=== PATIENT | female | born 1975 | race African-American/Black ===

== ENCOUNTER 2020-06-07 17:06 | Emergency (ER) | payer SELFPAY ==
[2020-06-07 17:14] VITALS: BP 143/86; PULSE 77; RESP 14; TEMP 36.7; O2SAT 97; BMI 25.4
[2020-06-07] MEDS: TET,DIPH,PERTUSS(ACELL),VAC/PF 0.5 ML SYRINGE IM (17:23)
--- NOTE | 2020-06-07 17:33 | PC.NURSE ---
Laceration between ring/pinky finger, gauze and pressure applied.
[2020-06-07] MEDS: ACETAMINOPHEN 325 MG TABLET 975 MG PO (19:03)
--- NOTE | 2020-06-07 19:27 | ED_ITS ---
HPI - Wound/Laceration General Chief Complaint: Wound/Laceration Stated Complaint: laceration right hand from glass Time Seen by Provider: 06/07/20 18:04 Source: patient and family Mode of arrival: Ambulatory Limitations: no limitations History of Present Illness HPI narrative: This is a 45-year-old female who states that she cut her the inside of her pinky finger in the webbing between the thinking and 4th finger about 4:00 p.m. today while washing a glass. She states the glass edge was chipped and she did realize it as she was rotating her hand and inside and cut her finger. Patient denies any numbness or tingling. No weakness. She has full range of motion. She denies any other medical issues. No prior surgeries besides . No allergies to medication. Patient tetanus was updated today her last was in 2011. Related Data Allergies Allergy/AdvReac Type Severity Reaction Status Date / Time No Known Drug Allergies Allergy Verified 06/07/20 17:14 Review of Systems Review of Systems ROS Unobtainable: All systems reviewed & are unremarkable except as noted in HPI and below Patient History Social History Smoking Status: Unknown if ever smoked Smoking Status: Unknown if ever smoked alcohol intake frequency: holidays/special occasions only Substance Use Type: does not use Exam Narrative Exam Narrative: GENERAL: Alert and oriented x three, well-nourished, well- appearing female in mild distress. HEENT: Head normocephalic, atraumatic, EOMI, pupils reactive, face symmetric, moist mucous membranes EXTREMITIES: Normal range of motion, no clubbing or edema. Neurovascularly intact. Patient has a deep laceration in the webbing between the 4th and 5th digit on her right hand. There is no tendon noted. Patient has full range of m otion. She has normal sensation throughout both fingers. NEUROLOGICAL: Cranial nerves II through XII grossly intact. Moving all extremities SKIN: Warm, dry, no petechiae, no rashes or lesions otherwise noted. Initial Vital Signs Initial Vital Signs: Vital Signs Temperature 98.1 F 06/07/20 17:14 Pulse Rate 77 06/07/20 17:14 Respiratory Rate 14 06/07/20 17:14 Blood Pressure 143/86 H 06/07/20 17:14 Pulse Oximetry 97 06/07/20 17:14 Procedures Laceration Repair Laceration 1: Site: hand Size (cm): 0.75 Description: irregular Depth: simple, single layer Local Anesthetic: lidocaine 1% Amount of anesthesia used (mL): 1 Pre-repair: wound explored, irrigated extensively and deep structures intact Skin layer closed with: nylon Size (cm): 4-0 Number of sutures: 3 Technique: simple, interrupted Course Orders Ordered: Discontinued Medications Acetaminophen (Acetaminophen 325 Mg Tablet) 975 mg PO NOW ONE Stop: 06/07/20 18:57 Last Admin: 06/07/20 19:03 Dose: 975 mg Documented by: LAILA Diphtheria/Tetanus/Acell Pertussis (Tet,Diph,Pertuss(Acell),Vac/Pf 0.5 Ml Syringe) 0.5 ml IM .ONCE ONE Stop: 06/07/20 17:15 Last Admin: 06/07/20 17:23 Dose: 0.5 ml Documented by: CLINT Lidocaine/Sodium Bicarbonate (Lido 1%/Sod Bicarb 8.4% (10ml) 10 Ml Syringe) 10 ml INJ NOW ONE Stop: 06/07/20 19:53 Last Admin: 06/07/20 19:57 Dose: 10 ml Documented by: CLINT Vital Signs Vital signs: Vital Signs - 8 hr 06/07/20 17:14 06/07/20 20:42 Temperature 98.1 F Pulse Rate 77 61 Respiratory Rate 14 Blood Pressure 143/86 H 123/73 Pulse Oximetry 97 98 MDM - Wound/Laceration MDM Narrative Medical decision making narrative: Tetanus is updated, patient had splint placed just as a reminder. All questions answered. Discharge Plan Departure Patient Disposition: Home Clinical Impression: Laceration Instructions: DI for Laceration Repair Activity Restrictions/Additional Instructions: You may take Tylenol up to a 1000 mg every 8 hours as needed for pain. Or a maximum of 3000 mg in 24 hours. Restrict your movement of your fingers so that you do not pull or tear the sutures. Wound Care: Keep wound(s) clean and dry. Wash daily with soap and water only. Do not use over the counter products (alcohol or peroxide)on the wounds unless instructed by a physician. If wound condition worsens (increased/expanding redness, developing fluid blisters, or worsening pain), either contact your doctor for an urgent re- assessment , or return to the Emergency Department. Return to the Emergency Department for any new or worsening symptoms. Return to the ED, urgent care, or vist a primary care doctor for removal or suture removal in 7-10 days. Return if fever greater than 100.4 Fahrenheit, increased swelling, increasing pain or worsening symptoms such as increased discharge or spreading redness. Use warm compresses 3 times daily for 20 minutes to the affected area. If there is packing in place do not pull it out, if it falls out do not try to replace it.
[2020-06-07] MEDS: LIDO 1%/SOD BICARB 8.4% (10ML) 10 ML SYRINGE INJ (19:57)
[2020-06-07 20:42] VITALS: BP 123/73; PULSE 61; O2SAT 98
== END 2020-06-07 20:43 | disposition home or self-care (01) ==
PROVIDERS: Emergency Provider Emergency Medicine
DX: S61.216A Laceration without foreign body of right little finger without damage to nail, initial encounter (principal); W25.XXXA Contact with sharp glass, initial encounter; Z23 Encounter for immunization
CPT/HCPCS: 12001; 90471; 99282; 99283; 90715